=== PATIENT | female | born 1955 | race Caucasian/White ===

== ENCOUNTER 2018-02-16 09:35 | Emergency (ER) | payer SELFPAY ==
[~2018-02-16] VITALS: Ht 154.9 cm; Wt 90.4 kg
[2018-02-16 09:39] VITALS: Ht 154.9 cm; Wt 90.4 kg
[2018-02-16 10:10] LABS: microscopic required? NO
[2018-02-16 10:26] LABS: UA SPECIFIC GRAVITY >=1.030 (1.005-1.035); urine erythrocyte NEGATIVE (NEGATIVE)
[2018-02-16 10:32] LABS: BASOPHIL % 0.9 % (0-2); PLATELET COUNT 218 x10^3mcL (130-400); RED CELL DISTRIBUTION WIDTH 13.3 % (11.5-14.5)
[2018-02-16 10:39] LABS: CARBON DIOXIDE 23.4 mmol/L (21-32); CHLORIDE SERUM 106 mmol/L (98-107); CREATININE SERUM 0.7 mg/dL (0.6-1.0); GFR1 > 60 mL/min; GLUCOSE SERUM 95 mg/dL (74-106); SODIUM SERUM 142 mmol/L (136-145)
[2018-02-16 10:44] LABS: ALBUMIN 3.5 g/dL (3.4-5.0); ALKALINE PHOSPHATASE 78 U/L (46-116); ALT/SGPT 14 U/L (14-59); AST/SGOT 17 U/L (15-37); BILIRUBIN TOTAL 0.56 mg/dL (0.20-1.00); TOTAL PROTEIN, SERUM 7.6 g/dL (6.4-8.2)
[2018-02-16 12:01] VITALS: BP 101/70
== END 2018-02-16 12:01 | disposition home or self-care (01) ==
LOC: ED 09:35
PROVIDERS: Emergency Medicine
DX: K57.92 Diverticulitis of intestine, part unspecified, without perforation or abscess without bleeding (principal); I10 Essential (primary) hypertension
CPT/HCPCS: J0295; J1885; J3010; J3490; J7030

== ENCOUNTER 2018-08-27 07:48 | Emergency (ER) | payer BC ==
[2018-08-27 07:54] VITALS: Ht 154.9 cm
[2018-08-27 09:30] VITALS: BP 142/84
== END 2018-08-27 09:30 | disposition home or self-care (01) ==
LOC: ED 07:48
DX: N95.2 Postmenopausal atrophic vaginitis (principal); I10 Essential (primary) hypertension